=== PATIENT | female | born 2000 | race Hispanic/Latino ===

== ENCOUNTER → 2022-12-18 18:34 | Outpatient (ROUT) | payer OTHER, MEDICAID, SELFPAY | PROVIDERS: Visit Provider Advanced Practice Midwife | DX: Z34.03 Encounter for supervision of normal first pregnancy, third trimester (principal) | CPT/HCPCS: 86900; 86901 ==

== ENCOUNTER 2023-01-05 02:59 | Inpatient (IN) | payer OTHER, MEDICAID, SELFPAY ==
--- NOTE | 2023-01-05 03:53 | P.HPOB_ITS ---
OB HPI Date/Time Date of admission: 01/05/23 Date Patient Seen: 01/05/23 Time Patient Seen: 03:53 History of Present Condition Chief complaint: OB : 1 Para: 0 Estimated Date of Delivery: 12/31/22 Estimated Gestational Age (weeks): 40w5d Narrative: Leticia Yip is a 22 year old female with IUP at 40w5d by LMP confirmed by 10 week ultrasound. She had an uneventful ; started care with CNMs at [facility] and transferred to [facility] at 29 weeks. Normal labs and GBS negative. Called tonight approx 2300 with contractions; stayed home until they got longer and more intense. Arrived to the hospital with painful contractions q 3 min x 60+ seconds long and was found to be in active labor. Denies headache, visual changes, epigastric pain. Okay with IV; plans for unmedicated . She is well supported by Perfecto, her partner, and her dad and his partner are on their way to offer support. History of Present care: good care, initiated at week # (6), number of visits (9) and pounds weight gain (38) Dating criteria: LMP confirmed by 1st trimester US Ultrasounds: normal 1st trimester US and normal mid trimester US Abnormal ultrasound findings: Bleeding at 6 weeks with irregular gestational sac and unable to identify CRL. Normal 10w1d ultrasound with CRL 3.3 cm. Obstetrical complications: none Medical complications: none Narrative: Elevated blood pressure on admission. Preadmission Labs Blood type: A (+) positive -: Antibody screen: negative, Cystic fibrosis screen: unknown, GBS status: negative, HBsAG: negative, HIV: negative, HSV 1: unknown, HSV 2: unknown and RPR/VDLR: negative -: Chlamydia screen: not detected and Gonorrhea screen: not detected -: Rubella: immune and Varicella: immune HCT: 31.7 ( 29 weeks) HCAB: negative Cell-free DNA: Low risk, XX per [facility] notes 1 hr GTT: 137 3 hr GTT: 1 hr (146), 2 hr (96) and 3 hr (104) Fasting blood glucose: 90 Narrative: Vargas has not had a pap yet. Planned . Prior (ies) History: None Evaluation Evaluation Baseline heart rate: 125 Variability: Moderate (11-25) monitor accelerations: Present Monitor Decelerations: Absent Contraction Frequency (minutes): 3 Status: Category l Dilation (cm): 7 Effacement (%): 80 Dilation: >/=5 cm Effacement: >/=80% station: -1 Position of cervix: anterior Consistency: soft Quiroga score: 12 Comments: Membranes intact [facility] Medical History (Updated 01/05/23 @ 06:32 by Tiara Rodriguez CNM, DIANA) Anemia affecting in third trimester Social History (Updated 01/05/23 @ 06:07 by Tiara Rodriguez CNM, DIANA) Smoking Status: Never smoker alcohol intake: former substance use type: marijuana additional social history: Qualifies for [employer] Meds Home Medications and Allergies Allergies Allergy/AdvReac Type Severity Reaction Status Date / Time No Known Drug Allergies Allergy Verified 01/05/23 04:05 Review of Systems Review of Systems Narrative: Negative except as mentioned in HPI. OB Exam Vital signs Blood Pressure: 141/94 (initial BPs in severe range; taken during contraction (160s/96-101)) Pulse Rate: 87 Respiratory Rate: 18 Temperature: 97.5 F Objective Labs 01/05/23 03:45 01/05/23 03:45 Assessment and Plan Assessment and Plan Assessment and Plan narrative: at 40w5d by LMP GBS neg Rh positive Normotensive durig Hypertensive in labor Mild anemia of FHR Cat 1, green Admit to L&D. ABO/Rh and PIH panel r/to HTN in labor Continuous monitoring Anticipate NSVB.
[2023-01-05 04:04] LABS: Add Manual Diff / Slide Review NO; Basophils Absolute Auto 100 /uL (0-100); Basophils Percent Auto 1.1 % (0-2); Eosinophils Absolute Auto 0 /uL (0-450); Eosinophils Percent Auto 0.3 % (2-4); Hematocrit 30.6 % (36-46); Hemoglobin 10.3 g/dL (12.0-16.0); Lymphocytes Absolute Auto 2200 /uL (1100-4500); Lymphocytes Percent Auto 23.7 % (25-40); Mean Corpuscular HGB Conc 33.8 % (30-36); Mean Corpuscular Hemoglobin 26.6 PG (26-34); Mean Corpuscular Volume 78.8 fL (80-100); Monocytes Absolute Auto 400 /uL (0-900); Monocytes Percent Auto 3.9 % (3-14); Neutrophils Absolute Auto 6700 /uL (1500-7000); Platelet Count 225 X10^3/uL (150-400); Red Blood Cell Count 3.88 X10^6/uL (4.0-5.2); Red Cell Distribution Width 15.1 % (11.6-14.8); White Blood Cell Count 9.4 X10^3/uL (4.5-11.0)
[2023-01-05 04:27] LABS: Alanine Aminotransferase 16 IU/L (<35); Albumin 3.6 g/dL (3.5-5.0); Albumin Globulin Ratio 0.9 (1.0-2.8); Alkaline Phosphatase 277 U/L (38-126); Aspartate Aminotransferase 24 IU/L (14-36); Bilirubin Total 0.2 mg/dL (0.2-1.3); Blood Urea Nitrogen 13 mg/dL (7-17); Calcium 8.6 mg/dL (8.4-10.2); Carbon Dioxide 17 mmol/L (22-32); Chloride 108 mmol/L (98-107); Estimated Glomerular Filt Rate > 60 mL/min (>60); Globulin 3.9 g/dL (1.7-4.1); Glucose 98 mg/dL (70-100); HEMOLYSIS < 15 (0-50); Potassium 3.8 mmol/L (3.4-5.1); Sodium 134 mmol/L (137-145); Total Protein 7.5 g/dL (6.3-8.2); Uric Acid 3.2 mg/dL (2.5-6.2)
[2023-01-05] MEDS: OXYTOCIN PREMIX 30 UNIT/500 ML PLAST..BAG 200 UNIT IV (05:25)
[2023-01-05] MEDS: LIDOCAINE 1% 20 ML INJ (05:38)
[2023-01-05 06:13] VITALS: BP 141/94; PULSE 87; RESP 18; TEMP 36.4
--- NOTE | 2023-01-05 06:19 | P.PCNOB_ITS ---
Events: Meconium Stained Fluid Labor & Delivery Delivery date: 01/05/23 Intrapartal Events: Acceleration Cervical ripening method: none Induction method: none Delivery monitor: external FHT Route of delivery: Episiotomy description: None L&D Laceration Description: Vaginal - 2nd Degree (bleeding; repaired with 3-0 vicryl in usual fashion to reach hemostasis) Delivery repair: vicryl Quantitative Blood Loss: 500 Anesthesia Type: None Complications: None. Normotensive immediately . Normal pre-eclampsia labs except mild anemia. Narrative: Vargas progressed quickly from 7 cm to feeling the spontaneous urge to push. Initially refused cervical exam, pushed well for 30 minutes, then was found to be complete and 0 station. Continued to push well with support from Perfecto and Farideh. SROM of lighly stained meconium fluid shortly before NSVB of vigorous baby girl, Mis was born into her father's hands. Shoulders delivered easily after restitution and maternal efforts. Baby girl placed on maternal abdomen for drying and stimulation. Respiratory therapist present but not needed. Cord clamped twice by this CNM and cut by FOB Perfecto. Pitocin 350 mL/hr IV started just after cord cut. Placenta delivered spontaneously with maternal effort and light traction, appears complete with 3VC. Gush of blood with placental delivery; QBL 500 mL. Perineum and vulva inspected; small, deep laceration noted in vagina; intact perineum. Laceration repaired with 3-0 vicryl in usual fashion after 10 mL of 1% lidocaine administered. Vargas and her baby left with stable vital signs, BP 128/81 and then 130/57, and baby attempting to breastfeed. Vargas and Perfecto are thrilled to meet their daughter. [place] Baby 1: Infant gender: Female Presentation: vertex Position: Right Occiput Transverse Placenta delivery description: Spontaneous Cord Vessel Description: 3 Vessels score (1 min): 8 score (5 min): 9 weight: 3.53 kg Plan for aftercare: Routine care
[2023-01-05] MEDS: KETOROLAC 30 MG/ML VIAL IV (06:44)
[2023-01-05 07:40] VITALS: BP 141/94
[2023-01-05] MEDS: DERMOPLAST SPRAY 20% 60 ML 1 SPRAY TOP (08:01)
[2023-01-05] MEDS: ACETAMINOPHEN 325 MG TABLET 975 MG PO ×2 (08:01→15:51)
[2023-01-05] MEDS: IBUPROFEN 600 MG TABLET PO ×2 (13:03→18:47)
[2023-01-06] MEDS: ACETAMINOPHEN 325 MG TABLET 975 MG PO ×2 (01:29→09:20)
[2023-01-06] MEDS: IBUPROFEN 600 MG TABLET PO ×2 (01:29→09:19)
--- NOTE | 2023-01-06 10:52 | PM.OBDS.1 ---
Discharge Providers Provider Date of admission: 01/05/23 02:59 Discharge Date: 01/06/23 Consults: 01/05/23 03:46 Consult to Anesthesiology Urgent Comment: Consulting Provider: Anesthesiologist Reason for consultation: Epidural Has provider been notified: No 01/06/23 05:58 Consult to Capital Project Engineer Routine Comment: Discharge provider: Tiara Rodriguez CNM, ARNP Summary Hospital Course Date Patient Seen: 01/06/23 Time Patient Seen: 10:52 Diagnoses: O80 Peripartum Data Delivery Method: Natural Vaginal Laceration Description: Vaginal - 1st Degree Procedures: Repaired with 3 sutures in usual fashion. 1: Gender: Female Disposition of : home Discharge Diagnosis (1) (normal spontaneous vaginal delivery): Start Date: 01/05/23 Start Time: 05:14 Status: Acute (2) Anemia affecting in third trimester: Status: Acute Problem Details: Recommend continuing iron supplementation until 6 weeks (3) Supervision of normal first in third trimester: Status: Acute (4) Vaginal laceration: Status: Acute Problem Details: Repaired Status at Discharge Cognitive/behavioral status at discharge: oriented and calm Functional status at discharge: independent ambulation Overall status at discharge: patient is progressing back to baseline Time Spent with Patient Time attestation: Total time spent providing and/or coordinating discharge services: Time spent: Less than 30 minutes Specific discharge activities: discharge teaching Objective Labs 01/05/23 03:45 01/05/23 03:45 Exam Vital Signs (past 8 hours): BP 127/82 HR 91 bpm RR 15/min Temp 99.2% SpO2 98% Other: Fundus firm at U, midline. Lochia minimal Perineum intact with minimal edema Vaginal laceration Skin General: no rashes or lesions noted Neuro General: patient alert, patient awake and patient oriented x3 Extrem General: normal to inspection, full ROM, capillary refill normal and no pedal edema Psych Appearance: grossly normal Mental Status: mental status grossly normal Discharge Plan Discharge Plan Patient Disposition: Home Discharge orders & Medications Prescriptions: No Action No Known Home Medications Follow up/Referrals: Tiara Rodriguez CNM, ARNP [Advanced Hvac Mechanical Engineer] - 2 Weeks (and 6 weeks) Diet/Activity/Treatments Diet: Diet as Tolerated and Regular Diet comment: Lots of fruits and veggies, stay well hydrated Activity: low-stout for 2 weeks Skin/Wound/Dressing Care Skin care: typical Report to your healthcare provider any signs of infection, such as:: chills, fever, unusual drainage and unusual redness Visit Report/Discharge Packet Stand Alone Forms: Patient Portal/API, Stroke Signs & Symptoms
[2023-01-06 11:39] VITALS: BP 127/82; PULSE 91; RESP 15; TEMP 37.3
== END 2023-01-06 13:15 | disposition home or self-care (01) | DRG 560 ==
PROVIDERS: Admitting Provider Advanced Practice Midwife; Referring Provider Advanced Practice Midwife; Visit Provider Advanced Practice Midwife
DX: O48.0 Post-term pregnancy (principal); Z3A.40 40 weeks gestation of pregnancy; Z37.0 Single live birth; O99.02 Anemia complicating childbirth; O71.4 Obstetric high vaginal laceration alone; Z67.10 Type A blood, Rh positive
CPT/HCPCS: 36415; 59050; 80053; 84550; 85025; 86850; 86900; 86901; G0379; J1885; J2590